=== PATIENT | female | born 1995 | race Asian ===

== ENCOUNTER 2024-10-09 13:12 | Outpatient (AMB) | payer OTHER, SELFPAY ==
--- NOTE | 2024-10-09 13:31 | A.OFFPC_ITS ---
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 Required: No Is last menstrual period known: Yes Last menstrual period: 03/10/24 Post menopausal: No Patient : Yes Allergies No Known Allergies Allergy (Verified 10/09/24 13:35) Medication List - Last Reconciled 10/11/24 by Edilia Burns MD ferrous sulfate (Gordo-Time) 325 mg PO DAILY vit [id number] 27 mg iron- 800 mcg ( Vitamin) tabs PO DAILY Tobacco use date assessed: 10/09/24 Dental Screening Dental Screen Date: 10/09/24 Did you have a dental visit in the last 12 months?: Yes Did you have a dental problem in the last 6 months where you did not have access to dental care?: No Was dental information given to patient?: Patient has dentist HPI HPI Comments History of Present Illness Details 29 year old female with no significant p ast medical history [facility] [place] [facility] [place] Previously was seen in [facility] clinic. 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 [facility] Follows with [facility] for elevated glucose. A1C 6.4% at last check. Checking glucose 4 times daily. She has been well controlled. Has had anemia through . This is being monitored ROS see HPI PHYSICAL EXAM: GENERAL: Alert and oriented x 3. NAD EYES: EOMI. Anicteric. HENT: Moist mucous membranes. No scleral icterus. No cervical lymphadenopathy. LUNGS: Clear to auscultation bilaterally. CARDIOVASCULAR: Regular rate and rhythm. No murmur. No JVD. ABDOMEN: Soft, non-tender +bs EXTREMITIES: No edema. Non-tender. SKIN: No rashes or lesions. Warm. NEUROLOGIC: No focal neurological deficits. CN II-XII grossly intact PSYCHIATRIC: Cooperative. 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 1. Little interest or pleasure in doing things: not at all 2. Feeling down, depressed, or hopeless: not at all 3. Trouble falling or staying asleep, or sleeping too much: not at all 4. Feeling tired or having little energy: not at all 5. Poor appetite or overeating: not at all 6. Feeling bad about yourself - or that you are a failure or have let yourself or your family down: not at all 7. Trouble concentrating on things, such as reading the newspaper or watching television: not at all 8. Moving or speaking so slowly that other people could have noticed. Or the opposite - being so fidgety or restless that you have been moving around a lot more than usual: not at all 9. Thoughts that you would be better off or of hurting yourself in some way: not at all Total score: 0 Depression Screening Interpretation: Negative Depression Screening Done: Yes 92182 - PHQ-9 Billing: Yes Source: Developed by Drs. Kory Ochoa, Maira Downs, Arash Almonte and colleagues, with an educational ashley from [employer]. Thrive Questionnaire Date Thrive assessed: 10/09/24 I am a: Patient What is your living situation today?: I have a steady place to live Within the past 12 months, did the food you bought not last and you didn't have the money to get more?: Never true Within the past 12 months, did you worry whether your food would run out before you got money to buy more?: Never true Do you have trouble paying for medicines?: No Do you have trouble getting transportation to medical appointments?: No Do you have trouble paying your heating and electricity bill?: No Do you have trouble taking care of your child, family member or friend?: No Do you have trouble with day-to-day activities such as bathing, preparing meals, shopping, managing finances, etc.?: No Are you currently unemployed and looking for a job?: No Are you interested in more education?: Yes Please select the resources that you would like help with: None Currently or been in a relationship where the following occur: No concerns reported THRIVE Score: 0 AUDIT C Alcohol Use Questionnaire (AUDIT-C) 1. How often do you have a drink containing alcohol?: Never Total Score: 0 SARKIS-7 AMB Questionnaire SARKIS-7 Date SARKIS - 7 assessed: 10/09/24 Feeling nervous, anxious, or on edge: 0 = Not at all Not being able to stop or control worryin = Not at all Worrying too much about different things: 0 = Not at all Trouble relaxin = Not at all Being so restless that it is hard to sit still: 0 = Not at all Becoming easily annoyed or irritable: 0 = Not at all Feeling afraid as if something awful might happen: 0 = Not at all Total SARKIS-7 score (0-4 normal; 5-9 mild; 10-14 moderate; 15-21 severe): 0 Source: Developed by Drs. Kory Ochoa, Maira Downs, Arash Almonte and colleagues, with an educational ashley from [employer]. SARKIS-7 Assessment Billing SARKIS-7 Assessment Tool: SARKIS-7 Assessment 58587 Physical exam (Primary Care) Vital Signs: Last Vital Signs Temp 98.6 F 10/09/24 13:39 Pulse 91 10/09/24 13:39 Resp 16 10/09/24 13:39 BP 114/55 L 10/09/24 13:39 Pulse Ox 97 10/09/24 13:39 Oxygen Delivery Method Room Air 10/09/24 13:39 BMI result Body Mass Index 29.3 Tobacco/Smoking Status: Tobacco use Status Tobacco use date assessed 10/09/24 10/09/24 13:38 Patient Tobacco Use Status Never used Tobacco 10/09/24 13:38 e-Cigarette/Vaping Use Never Used 10/09/24 13:38 PHQ-9: PHQ-9 Score PHQ-9: Total score 0 10/11/24 09:58 Depression Screening Interpretation: Negative Thrive Assessment: Date of Thrive Assessment Date Thrive assessed 10/09/24 10/09/24 13:33 Currently or been in a relationship where the following occur: No concerns reported Coding Level of Care Code New Pt Level 4 (58872) Diagnoses Encounter to establish care Z76.89 Anemia, unspecified type D64.9 Anemia type: unspecified type Additional Codes SARKIS-7 Assessment Billing - SARKIS-7 Assessment Tool: SARKIS-7 Assessment 28887 ([id number]) PHQ-9 - 25293 - PHQ-9 Billing: Yes ([id number]) Assessment & Plan Assessment & Plan (1) Encounter to establish care: Code(s): Z76.89 - Persons encountering health services in other specified circumstances Category: Medical Plan: 29 y/o to establish care. Past medical, surgical, social and family history reviewed. (2) Anemia: Code(s): D64.9 - Anemia, unspecified Category: Medical Qualifiers: Anemia type: unspecified type Qualified Code(s): D64.9 - Anemia, unspecified Plan: Labs ordered Orders: Orders Hemoglobin A1c 10/09/24 D64.9 - Anemia, unspecified, Z13.228 - Encounter for screening for other metabolic disorders, Z34.90 - Encounter for supervision of normal , unspecified, unspecified trimester, Z76.89 - Persons encountering health services in other specified circumstances TSH reflex Free T4 10/09/24 D64.9 - Anemia, unspecified, Z13.228 - Encounter for screening for other metabolic disorders, Z34.90 - Encounter for supervision of normal , unspecified, unspecified trimester, Z76.89 - Persons encountering health services in other specified circumstances
[2024-10-09 13:39] VITALS: BP 114/55; PULSE 91; RESP 16; TEMP 37; O2SAT 97; BMI 29.3
--- OUTSIDE RECORDS SUMMARY | 2024-10-09 14:08 | XMS_ITS | Clinical Summary ---
Author Organization [employer] Address [address] [place] [address] Care Team Providers Care Group Supervisor Yard Name Role Phone Nicolle Zabrina Acosta FOOD CHECKER Primary Care Provider [phone]- [phone] Allergies No known active allergies Medications aspirin-acetami nophen-caffeine (EXCEDRIN MIGRAINE) 250-250-65 mg tablet Take 1 tablet by mouth every 6 (six) hours if needed for headaches. Active multivitamin capsule Take 1 capsule by mouth 1 (one) time each day Active Active Problems Problem Noted Date Diagnosed Date Impaired fasting glucose 10/13/2022 Tension type headache 10/12/2021 Immunizations Name Administration Dates Next Due COVID-19 COVAXIN (Non-US) Vaccine 02/01/2021,11/2020 COVID-19 Pfizer SARS-CoV2 mR NA PF 30mcg/0.3mL [place] Vaccine ([place]) 10/12/2021 Influenza, trivalent (IIV3), split virus (single-dose) PF 06/08/2021 Tdap 06/08/2021 Varicella 08/10/2021,06/08/2021 Family History Medical History Relation Comments Hypertension Father Relation Status Comments Father Alive Mother Alive Social History Tobacco Use Types Packs/Day Years Used Date Smoking Tobacco: Never Smokeless Tobacco: Never Alcohol Use Standard Drinks/Week Comments Not Currently 0 (1 standard drink = 0.6 oz pur e alcohol) PHQ-2 Answer Date Recorded Depression Risk (PHQ2) Score 0 Comments Unknown Sex and Gender Information Value Date Recorded Sex Assigned at Not on file Legal Sex Female 1:16 PM [facility] Gender Identity Not on file Sexual Orientation Not on file Last Filed Vital Signs Vital Sign Reading Time Taken Comments Blood Pressure 116/88 10/13/2022 8:07 AM EST Pulse 97 10/13/2022 8:07 AM EST Temperature 36.4 ??C (97.5 ??F) 10/13/2022 8:07 AM ES T Respiratory Rate 100 05/25/2022 11:5 8 AM EDT Oxygen Saturation 98% 10/13/2022 8:07 AM EST Inhaled Oxygen Concentration - - Weight 69.3 kg (152 lb 12.8 oz) 10/13/2022 8:07 AM EST Height 162 cm (5' 3.78 ) 10/12/2021 7:07 AM EST Body Mass Index 26.41 10/12/2021 7:07 AM EST Plan of Treatment Health Maintenance Due Date Last Done Comments Hepatitis C Screening 1996 PHQ-9 Depression Screen 2008 SARKIS-7 Anxiety Screen 2014 Annual Preventive Exam 10/13/2023 10/13/2022, 2021 COVID-19 Vaccine (4 - 2023-2 5 season) 2024 10/12/2021, 02/01/2021, 09/25/2020 Influenza Vaccine (#1) 2024 06/08/2021 Cervical Cancer Screening (Pap/HPV) 10/12/202410/12 DTaP,Tdap,and Td Vaccines (2 - Td or Tdap) 06/08/2031 06/08/2021 RSV Vaccine (SCDM) (1 - 1-do se 75+ series) 2071 Procedures Procedure Name Priority Date/Time Associated Diagnosis Comments [facility] ([place] [place]) APTIMA HPV AGE GUIDELINE FOR CERVICAL CANCER AND STDS Routine 10/12/2021 7:45 AM EST Screening for cervical cancer from Last 3 Months or Most Recently Relevant to Health Maintenance Results * [facility] ([place] [place]) Age-Based Guideline for Cervical Cancer Aptima, CT/NG (LCA = 150776) (10/12/2021 7:45 AM EST) Age Gdln ACOG Testing 25-29 [facility] Cervix 10/12/2021 7:45 AM EST 10/13/2021 5:00 AM EST Narrative [facility] - 10/14/2021 4:11 PM EST Performed at: ??01 - [facility] [place] [address] ??[id number] Dewatering Filtering Supervisor: Kapil Francisco MD, Phone: ??[phone] Specimen Comment: Source.............Endocervix Specimen Comment: No. of containers..01 ThinPrep Vial us Zabrina Valverde NP LAB CYTOLOGY ORDERABLES Fi nal Result [facility] from Last 3 Months or Most Recently Relevant to Health Maintenance Insurance CIG Care Teams Group Supervisor Yard Relationship Specialty Start Date End Date Zabrina Valverde NP [address] [place] [id number] PCP - General Family Medicine 10/12/21
== END 2024-10-09 14:01 | disposition home or self-care (01) ==
PROVIDERS: PCP Internal Medicine; Visit Provider Internal Medicine
DX: Z76.89 Persons encountering health services in other specified circumstances (principal); D64.9 Anemia, unspecified

== ENCOUNTER → 2024-10-09 13:12 | Outpatient (BNVA) | payer OTHER, SELFPAY | PROVIDERS: PCP Internal Medicine; Visit Provider Internal Medicine | DX: Z76.89 Persons encountering health services in other specified circumstances (principal); D64.9 Anemia, unspecified | CPT/HCPCS: 96127 ==

== ENCOUNTER 2024-10-09 14:08 | Outpatient (REF) | payer OTHER, SELFPAY ==
--- OUTSIDE RECORDS SUMMARY | 2024-10-09 15:10 | XMS_ITS | Clinical Summary ---
Author Organization [employer] Address [address] [place] [address] Care Team Providers Care Nutrition Services Aide Name Role Phone Nicolle Zabrina Acosta LOFT WORKER HEAD Primary Care Provider +1- [phone] Allergies No known active allergies Medications aspirin-acetami [...] on file Legal Sex Female 1:16 PM [facility] Gender Identity Not on file Sexual [...] Procedure Name Priority Date/Time Associated Diagnosis Comments [facility] APTIMA HPV AGE GUIDELINE FOR CERVICAL CANCER AND STDS Routine 10/12/2021 7:45 AM EST Screening for cervical cancer from Last 3 Months or Most Recently Relevant to Health Maintenance Results * [facility] Age-Based Guideline for Cervical Cancer Aptima, CT/NG (LCA = [id number]) (10/12/2021 7:45 AM EST) Age Gdln ACOG Testing 25-29 [facility] Cervix 10/12/2021 7:45 AM EST 10/13/2021 5:00 AM EST Narrative [facility] - 10/14/2021 4:11 PM EST Performed at: ??01 - [facility] [place] [address] ??[id number] Woodworker Helper: Kapil Francisco MD, Phone: ??[phone] Specimen Comment: Source.............Endocervix Specimen Comment: No. of containers..01 ThinPrep Vial us Zabrnia Valverde NP LAB CYTOLOGY ORDERABLES Fi nal Result [facility] from Last 3 Months or Most Recently Relevant to Health Maintenance Insurance [employer]IG Care Teams Nutrition Services Aide Relationship Specialty Start Date End Date Zabrina Valverde NP [address] [place] [id number] PCP - General Family Medicine 10/12/21
[2024-10-09 18:02] LABS: Estimated Average Glucose 114 mg/dL; Hemoglobin A1C 95.3231 umol/L; Hemoglobin A1c % 5.6 % (<6.0); Total Hemoglobin (HGBA1C) 2500.7209 umol/L
[2024-10-09 18:26] LABS: TSH reflex Free T4 0.54 uIU/mL (0.32-4.0)
== END 2024-10-09 14:09 | disposition home or self-care (01) ==
LOC: HO.WFDLDS 14:08
PROVIDERS: Visit Provider Internal Medicine
DX: O99.019 Anemia complicating pregnancy, unspecified trimester (principal); D64.9 Anemia, unspecified; Z13.228 Encounter for screening for other metabolic disorders; Z13.1 Encounter for screening for diabetes mellitus; Z76.89 Persons encountering health services in other specified circumstances
CPT/HCPCS: 36415; 83036; 84443

== ENCOUNTER 2025-05-03 10:24 | Outpatient (AMB) | payer OTHER, SELFPAY ==
--- NOTE | 2025-05-03 10:34 | MHC.PC.OV ---
Vital Signs 05/03/25 10:35 Height 5 ft 2 in Weight 166 lb 2 oz BMI 30.4 BP 110/82 Blood Pressure Location Lt brachial Position Sitting Respiration 12 Pulse 88 Pulse Source Pulse Oximeter Temp 98.2 F Temp Source Oral Pulse Oximetry (%) 99 Oxygen Delivery Method Room Air Intake Visit Reasons: Post diabetes(GTT result is abnormal) Intake Note: Post diabetes. 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 Followed with MFM for elevated glucose during recent . She required lispro during the last week of . She delivered in November. Has post operative OGTT which was abnormal. A1C today is 7.0%. Has been more careful recently noting fasting glucose in 110s. Understands goal fasting glucose post prandial glucose and A1C. Wants to work on lifestyle changes repeat A1C in 3 months ROS see HPI PHYSICAL EXAM: GENERAL: Alert and oriented x 3. NAD EYES: EOMI. Anicteric. HENT: Moist mucous membranes. No scleral icterus. No cervical lymphadenopathy. LUNGS: Clear to auscultation bilaterally. CARDIOVASCULAR: Regular rate and rhythm. No murmur. No JVD. ABDOMEN: Soft, non-tender +bs EXTREMITIES: No edema. Non-tender. SKIN: No rashes or lesions. Warm. NEUROLOGIC: No focal neurological deficits. CN II-XII grossly intact PSYCHIATRIC: Cooperative. 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 Current occupational exposures/hazards: No Cognitive needs: No Hearing needs: No Vision needs: Yes Questionnaire Thrive Questionnaire Date Thrive assessed: 10/02/24 I am a: Patient What is your living situation today?: I have a steady place to live Within the past 12 months, did the food you bought not last and you didn't have the money to get more?: Never true Within the past 12 months, did you worry whether your food would run out before you got money to buy more?: Never true Do you have trouble paying for medicines?: No Do you have trouble getting transportation to medical appointments?: No Do you have trouble paying your heating and electricity bill?: No Do you have trouble taking care of your child, family member or friend?: No Do you have trouble with day-to-day activities such as bathing, preparing meals, shopping, managing finances, etc.?: No Are you currently unemployed and looking for a job?: No Are you interested in more education?: Yes Please select the resources that you would like help with: None Currently or been in a relationship where the following occur: No concerns reported THRIVE Score: 0 AUDIT C Alcohol Use Questionnaire (AUDIT-C) 1. How often do you have a drink containing alcohol?: Never 3. How often do you have six or more drinks on one occasion?: Never Total Score: 0 SARKIS-7 AMB Questionnaire SARKIS-7 Date SARKIS - 7 assessed: 10/09/24 Source: Developed by Drs. Kory Ochoa, Maira Downs, Arash Almonte and colleagues, with an educational ashley from [employer]. Physical exam (Primary Care) Vital Signs: Last Vital Signs Temp 98.2 F 05/03/25 10:35 Pulse 88 05/03/25 10:35 Resp 12 05/03/25 10:35 BP 110/82 05/03/25 10:35 Pulse Ox 99 05/03/25 10:35 Oxygen Delivery Method Room Air 05/03/25 10:35 BMI result Body Mass Index 30.4 Tobacco/Smoking Status: Tobacco use Status Tobacco use date assessed 10/09/24 05/03/25 10:37 Patient Tobacco Use Status Never used Tobacco 05/03/25 10:37 e-Cigarette/Vaping Use Never Used 05/03/25 10:37 Thrive Assessment: Date of Thrive Assessment Date Thrive assessed 10/02/24 05/03/25 10:37 Currently or been in a relationship where the following occur: No concerns reported Results AMB Hemoglobin A1c AMB Hemoglobin A1c 7.0 % Last Edit by Orin Gonzalez CMA on 05/03/25 10:52 Results Reviewed Results Reviewed: Laboratory Last Values Hgb A1c (Clinic) 7.0 % (4.0-6.0) H 05/03/25 10:50 Coding Level of Care Code Est Pt Level 4 (23670) Diagnoses Type 2 diabetes mellitus without complication, without long-term current use of insulin E11.9 Diabetes mellitus type: type 2 Diabetes mellitus prison insulin use: without prison use Diabetes mellitus complication status: without complication Screening for metabolic disorder Z13.228 Assessment & Plan Assessment & Plan (1) Diabetes: Code(s): E11.9 - Type 2 diabetes mellitus without complications Category: Medical Qualifiers: Diabetes mellitus type: type 2 Diabetes mellitus prison insulin use: without prison use Diabetes mellitus complication status: without complication Qualified Code(s): E11.9 - Type 2 diabetes mellitus without complications (2) Screening for metabolic disorder: Code(s): Z13.228 - Encounter for screening for other metabolic disorders Category: Medical Plan Diabetes range [id number] trial of lifetyle modification recheck A1C 3 months She is agreeable to meeting with a supervisor assembling. referral placed continue to monitor fasting, post prandial glucose Orders: Orders AMB Hemoglobin A1c Today O24.419 - Gestational diabetes mellitus in , unspecified control Referrals Nutrition/Dietitian Referral O24.419 - Gestational diabetes mellitus in , unspecified control, Z13.228 - Encounter for screening for other metabolic disorders
[2025-05-03 10:35] VITALS: BP 110/82; PULSE 88; RESP 12; TEMP 36.8; O2SAT 99; BMI 30.4
--- OUTSIDE RECORDS SUMMARY | 2025-05-03 11:54 | XMS_ITS | Clinical Summary ---
Author Organization [facility] Address [address] [place] [address] Care Team Providers Care Salesperson Women'S Hats Name Role Phone Zabrina Valverde ON AIR TALENT Primary Care Provider +1- [phone] Allergies No known active allergies Medications aspirin-acetami nophen-caffeine (EXCEDRIN MIGRAINE) 250-250-65 mg tablet Take 1 tablet by mouth every 6 (six) hours if needed for headaches. Active multivitamin capsule Take 1 capsule by mouth 1 (one) time each day Active Active Problems Problem Noted Date Diagnosed Date Impaired fasting glucose 10/13/2022 Tension type headache 10/12/2021 Immunizations Immunization Administration Dates Next Due COVID-19 COVAXIN (Non-US) [...] on file Legal Sex Female 1:16 PM [facility] Gender Identity Not on file Sexual Orientation Not on file Last Filed Vital Signs Vital Sign Reading Time Taken Comments Blood Pressure 116/88 10/13/2022 8:07 AM EST Pulse 97 10/13/2022 8:07 AM EST Temperature 36.4 C (97.5 F) 10/13/2022 8:07 AM EST Respiratory Rate 100 05/25/2022 11:5 8 AM [...] 2014 Annual Preventive Exam 10/13/2023 10/13/2022, 2021 Cervical Cancer Screening (Pap/HPV) 10/12/202410/12 COVID-19 Vaccine (4 - 2024-2 6 season) 2025 10/12/2021, 02/01/2021, 09/25/2020 Influenza Vaccine (#1) 2025 06/08/2021 DTaP,Tdap,and Td Vaccines (2 - Td or Tdap) 06/08/2031 06/08/2021 RSV Vaccine (SCDM) (1 - 1-do se 75+ series) 2071 Procedures Procedure Name Priority Date/Time Associated Diagnosis Comments [facility] APTIMA HPV AGE GUIDELINE FOR CERVICAL CANCER AND STDS Routine 10/12/2021 7:45 AM EST Screening for cervical cancer from Last 3 Months or Most Recently Relevant to Health Maintenance Results * [facility] Age-Based Guideline for Cervical Cancer Aptima, CT/NG (LCA = [id number]) (10/12/2021 7:45 AM EST) Age Gdln ACOG Testing 25-29 [facility] Cervix 10/12/2021 7:45 AM EST 10/13/2021 5:00 AM EST Narrative [facility] - 10/14/2021 4:11 PM EST Performed at: 01 - [facility] [address] [id number] Industrial Chemistry Teacher: Kapil Francisco MD, Phone: [phone] Specimen Comment: Source.............Endocervix Specimen Comment: No. of containers..01 ThinPrep Vial us Zabrina Valverde NP LAB CYTOLOGY ORDERABLES Fi nal Result [facility] from Last 3 Months or Most Recently Relevant to Health Maintenance Insurance [employer] Care Teams Salesperson Women'S Hats Relationship Specialty Start Date End Date Zabrina Valverde NP [address] [place] [id number] PCP - General Family Medicine 10/12/21
== END 2025-05-03 11:02 | disposition home or self-care (01) ==
LOC: HO.HMCFM 10:24
PROVIDERS: PCP Internal Medicine; Visit Provider Internal Medicine
DX: E11.9 Type 2 diabetes mellitus without complications (principal); Z13.228 Encounter for screening for other metabolic disorders; O24.419 Gestational diabetes mellitus in pregnancy, unspecified control

== ENCOUNTER → 2025-05-03 10:24 | Outpatient (BNVA) | payer OTHER, SELFPAY | PROVIDERS: PCP Internal Medicine; Visit Provider Internal Medicine | DX: O24.419 Gestational diabetes mellitus in pregnancy, unspecified control (principal) | CPT/HCPCS: 83036 ==

== ENCOUNTER 2025-07-11 11:07 | Outpatient (AMB) | payer OTHER, SELFPAY ==
--- NOTE | 2025-07-11 11:13 | A.OFFVIS_ITS ---
VS Expanded 07/11/25 11:14 07/15/25 10:34 Height 5 ft 2 in 5 ft 2 in Weight 157 lb 157 lb BMI 28.7 28.7 Intake Visit Reasons: Encounter for screening for other metabolic disord Allergies iv ferrous Allergy (Severe, Uncoded 05/03/25 10:39) shortness of breath, body rash Nutrition Presentation Details: Pt presents for MNT for T2DM Patient presents with during this appointment Patient is breast feeding her now 3-month-old baby Patient reports having a history of anemia and currently not taking iron supplements. Reports typically having a light meal or skipping meals during the day and then later on at night she tends to have the largest meal. She reports having had gestational diabetes. OST-Dgszbfb-Sr.Jeor Equation Height: 5 ft 2 in Weight: 157 lb Resting Metabolic Rate: 1392.00 Calculated Activity Level: Sedentary Calories Needed to Maintain Weight: 1670.40 Diagnosis Nutrition problem #1: food nutri know defi As related to (etiology) #1: diagnosis As evidenced by (sign/symptom) #1: knowledge deficit of diet PFSH Family History Mother High blood pressure Father High blood pressure Diabetes Maternal Grandmother Breast cancer Stroke (cerebrum) Social History Housing: House Patient Tobacco Use Status: Never used Tobacco e-Cigarette/Vaping Use: Never Used Second Hand Smoke Exposure: No service: No Current occupational status: employed 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 Current occupational exposures/hazards: No Cognitive needs: No Hearing needs: No Vision needs: Yes Assessment & Plan Assessment & Plan (1) Diabetes: Code(s): E11.9 - Type 2 diabetes mellitus without complications Category: Medical Qualifiers: Diabetes mellitus type: type 2 Diabetes mellitus long term care phlebotomist insulin use: without long term care phlebotomist use Diabetes mellitus complication status: without complication Qualified Code(s): E11.9 - Type 2 diabetes mellitus without complications Plan: current wt: 71 kg ( 07/16 ) est kcal needs as per MSJ: 1700 est protein needs as per 1 g/kg BW: 70 est fluid needs as per 30 ml/kg BW: 2100 Recommended fiber > 12 g /day and gradually increase up to 25-28 g /day or as tolerated Recommend sodium intake: 2300 mg per day or less unless otherwise specified by your Dr. Nutrition topics discussed : Reviewed (R), Pt verbalized understanding (V) , not applicable (N/A) R, : Healthy Plate Method Concept: Including iron reach sources of foods R, V, N/A: Carbohydrates: food sources of carbohydrates, relationship of carbohydrates to blood glucose, fatty liver GI health. Recommended total amount of carbohydrates per meals and snack. Differences between simple carbohydrates and complex carbohydrates R, : Lean protein foods including vegan , vegetarian sources of protein. Benefits of protein (including but not limited to healing, nutritional value , benefits in weight loss, glucose control R, V, N/A: Fats : Source of fats, benefits of fats. Difference between saturated and unsaturated fats. Saturated fats and its contribution to inflammation R, V, N/A: Fiber: food sources and role of fiber in the diet (including but not limited to its role as a prebiotic, benefits in constipation, role in IBS , role in glucose control and cholesterol level) R, : Hydration: role of hydration and prevention of dehydration or over hydration. Foods and water content. R, V, N/A: Vitamins and Minerals in foods and supplements R, V, N/A: Interpreting food labels, including serving size, macronutrients, vitamins, minerals, allergens, ingredient list , % daily value Patient Instructions: Work on reducing your total carbohydrates to less than 45-60 g at a meal reduce on sugars/honey, pastries Resume taking iron supplements as prescribed by your doctor Coding Level of Care Code Nutr Indiv Intake (00841) Diagnoses Type 2 diabetes mellitus without complication, without long-term current use of insulin E11.9 Diabetes mellitus type: type 2 Diabetes mellitus senior care insulin use: without senior care use Diabetes mellitus complication status: without complication Time Spent (min) 30
[2025-07-11 11:14] VITALS: BMI 28.7
--- OUTSIDE RECORDS SUMMARY | 2025-07-11 17:17 | XMS_ITS | Clinical Summary ---
Author Organization [facility] Address [address] [place] [address] Care Team Providers Care Deck Engine Operator Name Role Phone Zabrina Valverde PAYROLL AND BENEFITS ANALYST Primary Care Provider [phone] Allergies No known active allergies Medications aspirin-acetami [...] on file Legal Sex Female 1:16 PM [facility] Gender Identity Not on file Sexual [...] Depression Screen 2008 SARKIS-7 Anxiety Screen 2014 Hepatitis B Vaccines (1 of 3 - 19+ 3-dose series) 2015 MMR Vaccines (1 of 1 - Stand lorrie series) 09/07/2021 Annual Preventive Exam 10/13/2023 10/13/2022, 2021 Cervical Cancer Screening (Pap/HPV) 10/12/202410/12 COVID-19 Vaccine (4 - 2024-2 6 season) 2025 10/12/2021, 02/01/2021, 09/25/2020 Influenza Vaccine (#1) 2025 06/08/2021 DTaP,Tdap,and Td Vaccines (2 - Td or Tdap) 06/08/2031 06/08/2021 RSV Vaccine (SCDM) (1 - 1-do se 75+ series) 2071 Varicella Vaccines Completed 08/10/2021, 06/08/2021 Procedures Procedure Name Priority Date/Time Associated Diagnosis Comments [facility] HPV AGE GUIDELINE FOR CERVICAL CANCER AND STDS Routine 10/12/2021 7:45 AM EST Screening for cervical cancer from Last 3 Months or Most Recently Relevant to Health Maintenance Results * [facility] Age-Based Guideline for Cervical Cancer Aptima, CT/NG (LCA = [id number]) (10/12/2021 7:45 AM EST) Age Gdln ACOG Testing 25-29 [facility] Cervix 10/12/2021 7:45 AM EST 10/13/2021 5:00 AM EST Narrative [facility] - 10/14/2021 4:11 PM EST Performed at: - [facility] [id number] Cradle Slide Maker: Kapil Francisco MD, Phone: [phone] Specimen Comment: Source.............Endocervix Specimen Comment: No. of containers..01 ThinPrep Vial Zabrina Valverde NP LAB CYTOLOGY ORDERABLES Fi nal Result [facility] from Last 3 Months or Most Recently Relevant to Health Maintenance Insurance CIG Care Teams Deck Engine Operator Relationship Specialty Start Date End Date Zabrina Valverde NP [address] [place] [id number] PCP - General Family Medicine 10/12/21
[2025-07-15 10:34] VITALS: BMI 28.7
== END 2025-07-11 11:51 | disposition home or self-care (01) ==
LOC: HO.ENCR 11:08
PROVIDERS: PCP Internal Medicine; Visit Provider Dietitian, Registered
DX: E11.9 Type 2 diabetes mellitus without complications (principal)

== ENCOUNTER → 2025-07-11 11:07 | Outpatient (BNVA) | payer OTHER, SELFPAY | PROVIDERS: PCP Internal Medicine; Visit Provider Dietitian, Registered | DX: E11.9 Type 2 diabetes mellitus without complications (principal) | CPT/HCPCS: 97802 ==

== ENCOUNTER 2025-08-05 10:02 | Outpatient (AMB) | payer OTHER, SELFPAY ==
--- NOTE | 2025-08-05 10:06 | A.OFFPC_ITS ---
Vital Signs 08/05/25 10:07 Height 5 ft 2 in Weight 160 lb BMI 29.3 BP 114/74 Blood Pressure Location Rt brachial Position Sitting Respiration 14 Pulse 81 Pulse Source Pulse Oximeter Temp 98.3 F Temp Source Oral Pulse Oximetry (%) 99 Oxygen Delivery Method Room Air Intake Visit Reasons: DM Intake Note: Diabetes follow up Manager Interventional Required: No Allergies iv ferrous Allergy (Severe, Uncoded 08/05/25 10:08) shortness of breath, body rash Tobacco use date assessed: 08/05/25 Dental Screening Dental Screen Date: 10/09/24 HPI HPI Comments History of Present Illness Details 30 year old female with a past medical h istory of diabetes presenting for follow up Diabetes: A1C today is 6.6% from 7.0%. Patient not currently on medications. Followed with MFM for elevated glucose during recent -required lispro for gestational diabetes. Her weight is stable ROS see HPI PHYSICAL EXAM: GENERAL: Alert and oriented x 3. NAD EYES: EOMI. Anicteric. HENT: Moist mucous membranes. No scleral icterus. No cervical lymphadenopathy. LUNGS: Clear to auscultation bilaterally. CARDIOVASCULAR: Regular rate and rhythm. No murmur. No JVD. ABDOMEN: Soft, non-tender +bs EXTREMITIES: No edema. Non-tender. SKIN: No rashes or lesions. Warm. NEUROLOGIC: No focal neurological deficits. CN II-XII grossly intact PSYCHIATRIC: Cooperative. 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 exposures/hazards: No Cognitive needs: No Hearing needs: No Vision needs: Yes Questionnaire Thrive Questionnaire Date Thrive assessed: 10/02/24 I am a: Patient What is your living situation today?: I have a steady place to live Within the past 12 months, did the food you bought not last and you didn't have the money to get more?: Never true Within the past 12 months, did you worry whether your food would run out before you got money to buy more?: Never true Do you have trouble paying for medicines?: No Do you have trouble getting transportation to medical appointments?: No Do you have trouble paying your heating and electricity bill?: No Do you have trouble taking care of your child, family member or friend?: No Do you have trouble with day-to-day activities such as bathing, preparing meals, shopping, managing finances, etc.?: No Are you currently unemployed and looking for a job?: No Are you interested in more education?: Yes Please select the resources that you would like help with: None Currently or been in a relationship where the following occur: No concerns reported THRIVE Score: 0 AUDIT C Alcohol Use Questionnaire (AUDIT-C) 1. How often do you have a drink containing alcohol?: Never 3. How often do you have six or more drinks on one occasion?: Never Total Score: 0 SARKIS-7 AMB Questionnaire SARKIS-7 Date SARKIS - 7 assessed: 10/09/24 Source: Developed by Drs. Kory Ochoa, Maira Downs, Arash Almonte and colleagues, with an educational ashley from [employer]. Physical exam (Primary Care) Vital Signs: Last Vital Signs Temp 98.3 F 08/05/25 10:07 Pulse 81 08/05/25 10:07 Resp 14 08/05/25 10:07 BP 114/74 08/05/25 10:07 Pulse Ox 99 08/05/25 10:07 Oxygen Delivery Method Room Air 08/05/25 10:07 BMI result Body Mass Index 29.3 Tobacco/Smoking Status: Tobacco use Status Tobacco use date assessed 08/05/25 08/05/25 10:13 Patient Tobacco Use Status Never used Tobacco 08/05/25 10:13 e-Cigarette/Vaping Use Never Used 08/05/25 10:13 Thrive Assessment: Date of Thrive Assessment Date Thrive assessed 10/02/24 08/05/25 10:13 Currently or been in a relationship where the following occur: No concerns reported Results AMB Hemoglobin A1c AMB Hemoglobin A1c 6.6 % Last Edit by Orin Gonzalez CMA on 08/05/25 10:19 Results Reviewed Results Reviewed: Laboratory Last Values Hgb A1c (Clinic) 6.6 % (4.0-6.0) H 08/05/25 10:14 Coding Level of Care Code Est Pt Level 3 (75826) Diagnoses Type 2 diabetes mellitus without complication, without long-term current use of insulin E11.9 Diabetes mellitus type: type 2 Diabetes mellitus mcfp insulin use: without mcfp use Diabetes mellitus complication status: without complication Assessment & Plan Assessment & Plan (1) Diabetes: Code(s): E11.9 - Type 2 diabetes mellitus without complications Category: Medical Qualifiers: Diabetes mellitus type: type 2 Diabetes mellitus middle or intermediate school principal insulin use: without middle or intermediate school principal use Diabetes mellitus complication status: without complication Qualified Code(s): E11.9 - Type 2 diabetes mellitus without complications Plan 30 year old with diabetes Diet controlled at present. continues to check fasting blood glucose intermittently Continue efforts dietary and lifestyle changes. Recheck labs 3 months Orders: Orders Comprehensive Met. Panel 08/05/25 D64.9 - Anemia, unspecified, E11.9 - Type 2 diabetes mellitus without complications, Z13.228 - Encounter for screening for other metabolic disorders Lipid Panel 08/05/254.9 - Anemia, unspecified, E11.9 - Type 2 diabetes mellitus without complications, Z13.228 - Encounter for screening for other metabolic disorders Microalbumin, Random (w Creat) 08/05/25 D64.9 - Anemia, unspecified, E11.9 - Type 2 diabetes mellitus without complications, Z13.228 - Encounter for screening for other metabolic disorders IRON PROFILE 08/05/254.9 - Anemia, unspecified, E11.9 - Type 2 diabetes mellitus without complications, Z13.228 - Encounter for screening for other met abolic disorders TSH reflex Free T4 08/05/25 D64.9 - Anemia, unspecified, E11.9 - Type 2 diabetes mellitus without complications AMB Hemoglobin A1c 08/05/25 E11.9 - Type 2 diabetes mellitus without complications Complete Blood Count Auto Diff 08/05/25 D64.9 - Anemia, unspecified, E11.9 - Type 2 diabetes mellitus without complications, Z13.228 - Encounter for screening for other metabolic disorders Vitamin B12 and Folate 08/05/25 D64.9 - Anemia, unspecified, Z13.228 - Encounter for screening for other metabolic disorders
[2025-08-05 10:07] VITALS: BP 114/74; PULSE 81; RESP 14; TEMP 36.8; O2SAT 99; BMI 29.3
== END 2025-08-05 10:44 | disposition home or self-care (01) ==
LOC: HO.HMCFM 10:03
PROVIDERS: PCP Internal Medicine; Visit Provider Internal Medicine
DX: E11.9 Type 2 diabetes mellitus without complications (principal)

== ENCOUNTER 2025-08-05 10:02 | Outpatient (REF) | payer OTHER, SELFPAY ==
[2025-08-05 15:41] LABS: Microalbum/Creatinine Ratio Ur 15.9 ug/mg cr (<30)
[2025-08-05 18:03] LABS: MANUAL DIFF FLAG NO
[2025-08-05 18:16] LABS: Hematocrit 34.0 % (37.0-47.0); Hemoglobin 10.2 g/dl (12.0-16.0); Imm Gran Abs Auto 0.02 X10*3/uL (0.00-0.03); Imm Gran Pct Auto 0.3 % (0.0-0.4); Lymphocytes Absolute Auto 1.9 X10*3/uL (1.2-4.9); Mean Corpuscular HGB Conc 30.0 g/dl (31.0-35.0); Mean Corpuscular Hemoglobin 22.7 pg (27.0-33.0); Mean Corpuscular Volume 75.7 fL (80.0-98.0); NRBC Abs Auto 0.000 X10*3/uL (0.0-0.012); NRBC Pct Auto 0.0 /100WBC (0.0-0.2); Platelet Count 373 X10*3/uL (160-400); Red Blood Count 4.49 X10*6/uL (4.20-5.50); White Blood Count 7.0 X10*3/uL (4.8-10.8)
[2025-08-05 19:02] LABS: Alanine Aminotransferase 9 U/L (0-31); Albumin Level 4.3 g/dL (3.5-5.0); Alkaline Phosphatase 116 U/L (39-117); Anion Gap 8 (12-20); Aspartate Amino Transferase 20 U/L (5-31); Blood Urea Nitrogen 8 mg/dL (9-16); Calcium 9.5 mg/dL (8.4-10.2); Carbon Dioxide 26 mmol/L (22-29); Chloride 107 mmol/L (96-108); Cholesterol 169 mg/dL (<200); Estimated Glomerular Filt Rate > 60; HDL Cholesterol 55 mg/dL (>40); Iron 48 mcg/dL (30-160); Percent Iron Saturation 13 % (15-50); Potassium 4.2 mmol/L (3.3-5.1); Sodium 137 mmol/L (135-145); Total Iron Binding Capacity 372 mcg/dL (228-428); Total Protein 7.4 g/dL (6.5-8.0); Triglycerides 56 mg/dL (<150); Unsaturated Iron Binding 324 ug/dL
[2025-08-05 19:16] LABS: Folate 12.6 ng/mL (> or = 4.0); Vitamin B12 572 pg/mL (200-900)
== END 2025-08-05 10:03 | disposition home or self-care (01) ==
LOC: HO.WFDLDS 10:02
PROVIDERS: PCP Internal Medicine; Visit Provider Internal Medicine
DX: Z13.228 Encounter for screening for other metabolic disorders (principal); E11.9 Type 2 diabetes mellitus without complications; D64.9 Anemia, unspecified
CPT/HCPCS: 36415; 80053; 80061; 82043; 82570; 82607; 82746; 83036; 83540; 84443; 85025